=== PATIENT | female | born 1955 | race American Indian/Alaskan Native ===

== ENCOUNTER 2018-12-25 13:14 | Emergency (ER) | payer MEDICARE ==
[2018-12-25 13:52] VITALS: BP 141/72
--- NOTE | 2018-12-25 13:58 | Emergency Department Report ---
ED N/V/D HPI - General Chief complaint: Extremity Problem,Nontraumatic Stated complaint: ALTERED MENTAL Time Seen by Provider: 12/25/18 13:53 Source: EMS Mode of arrival: Wheelchair Limitations: No Limitations - History of Present Illness Initial comments: 63-year-old female with a past medical history of CVA in 2014 with intermittent left-sided weakness requiring use of a cane and slurred speech, hypertension, and depression presents to the hospital after vomiting episode. Patient states she was at [facility] when she had a large emesis episode after eating. Patient did complain of some hand pain at [facility] which has since resolved. She is currently asymptomatic and wants to go home. She denies history of diabetes, headache, chest pain, shortness of breath, abdominal pain, fever, diarrhea, or dysuria. - Related Data Previous Rx's Medication Instructions Recorded Last Taken Type Ondansetron [Zofran Odt] 4 mg PO Q8HR PRN #20 tab.rapdis 12/25/18 Unknown Rx ED Review of Systems ROS: Stated complaint: ALTERED MENTAL Other details as noted in HPI Comment: All other systems reviewed and negative ED Past Medical Hx - Social History Smoking Status: Never Smoker Substance Use Type: None - Medications Home Medications: Home Medications Medication Instructions Recorded Confirmed Last Taken Type Ondansetron [Zofran Odt] 4 mg PO Q8HR PRN #20 tab.rapdis 12/25/18 Unknown Rx ED Physical Exam - General Limitations: No Limitations - Other Other exam information: General: No limitations, patient is alert in no acute distress Head exam: Atraumatic, normocephalic Eyes exam: Normal appearance ENT: Moist mucous membrane, normal oropharynx Neck exam: Normal inspection, full range of motion, no meningismus nontender Respiratory exam: Clear to auscultation bilateral, no wheezes, rales, crackles Cardiovascular: Normal rate and rhythm, normal heart sounds Abdomen: Soft, nondistended, and nontender, with normal bowel sounds, no rebound, or guarding Extremity: Full range of motion normal inspection no deformity Back: Normal Inspection, full range of motion, no tenderness Neurologic: Alert, oriented x3, mildly slurred speech without facial droop, 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 Equal leg strength 4/5 hip extension against gravity. Psychiatric: normal affect, normal mood Skin: Warm, dry, intact ED Course Vital Signs 12/25/18 13:41 Temperature 98.6 F Pulse Rate 76 Respiratory 15 Rate Blood Pressure 141/72 Blood Pressure 141/72 [Left] O2 Sat by Pulse 98 Oximetry ED Medical Decision Making - Medical Decision Making Patient states she feels back to normal and does not want any further treatment. Vital signs and Accu-Chek normal. Patient's abdomen is nontender. Offered labs and urine which patient declined. Patient be discharged with Zofran and follow-up advised with PMD this week. - Differential Diagnosis food poisoning, gastroenteritis, overeating Critical Care Time: No Critical care attestation.: If time is entered above; I have spent that time in minutes in the direct care of this critically ill patient, excluding procedure time. ED Disposition Clinical Impression: Vomiting Disposition: DC-01 TO HOME OR SELFCARE Is pt being admited?: No Does the pt Need Aspirin: No Condition: Stable Instructions: Acute Nausea and Vomiting (ED) Additional Instructions: Take the medication as prescribed. Follow up with your doctor or the cli grazyna/doctor provided. Return if symptoms worsen as indicated by your discharge instructions Prescriptions: Ondansetron [Zofran Odt] 4 mg PO Q8HR PRN #20 tab.rapdis PRN Reason: Nausea And Vomiting Referrals: your, pmd [Other] - 3-5 Days Time of Disposition: 14:10
== END 2018-12-25 14:15 | disposition home or self-care (01) ==
LOC: ED 13:14
DX: R11.10 Vomiting, unspecified (principal); F32.9 Major depressive disorder, single episode, unspecified; I10 Essential (primary) hypertension; Z86.73 Personal history of transient ischemic attack (TIA), and cerebral infarction without residual deficits
CPT/HCPCS: 82962